=== PATIENT | female | born 1960 | race Caucasian/White ===

== ENCOUNTER → 2023-02-23 11:46 | Outpatient (CLI) | payer OTHER, MEDICAID, SELFPAY ==
--- NOTE | 2023-02-23 11:48 | DI.RAD.S_ITS ---
PROCEDURE: XR LUMBAR SPINE 2-3V INDICATIONS: back pain x 7 months and numbness in hands x 1 month TECHNIQUE: 3 views of the lumbar spine were acquired. COMPARISON: None. FINDINGS: Bones: 5 [id number] vertebrae are present. There is normal bony alignment. Age-indeterminate anterior compression fracture of T12. Age-indeterminate but likely chronic anterior compression deformity of L3. No suspicious bony lesions. Diffuse osteopenia. Multilevel spondylosis. Soft tissues: Overlying bowel gas pattern is normal. No suspicious soft tissue calcifications. IMPRESSION: Age-indeterminate anterior compression fracture involving the T12 vertebral body. Age-indeterminate anterior compression deformity at L3 which is favored to be chronic. Multilevel spondylosis. If there is high clinical concern for acute compression fracture, further evaluation with cross-sectional imaging with CT or MRI can be considered. MRI would be more sensitive. Dictated by: Jabier Mackay M.D. on 02/23/2023 at 16:29 Approved by: Jabier Mackay M.D. on 02/23/2023 at 16:31
--- NOTE | 2023-02-23 11:48 | DI.RAD.S_ITS ---
PROCEDURE: XR THORACIC SPINE 3V INDICATIONS: back pain x 7 months and numbness in hands x 1 month TECHNIQUE: 3 views of the thoracic spine were acquired. COMPARISON: None. FINDINGS: Bones: Age-indeterminate anterior compression fracture at T12. Multilevel thoracic spondylosis. Diffuse osteopenia. No suspicious bony lesions. 12 pairs of ribs are noted, and appear intact where visualized. Soft tissues: No paravertebral stripe thickening. IMPRESSION: Age-indeterminate anterior compression fracture of T12. If there is persistent clinical concern, consider further evaluation with CT or MRI. MRI would be more sensitive. Dictated by: Jabier Mackay M.D. on 02/23/2023 at 16:31 Approved by: Jabier Mackay M.D. on 02/23/2023 at 16:33
== END ==
PROVIDERS: Referring Provider Physician Assistant; Visit Provider Physician Assistant
DX: M47.814 Spondylosis without myelopathy or radiculopathy, thoracic region (principal); M47.816 Spondylosis without myelopathy or radiculopathy, lumbar region; M48.54XA Collapsed vertebra, not elsewhere classified, thoracic region, initial encounter for fracture; M48.56XA Collapsed vertebra, not elsewhere classified, lumbar region, initial encounter for fracture; M54.9 Dorsalgia, unspecified; M85.88 Other specified disorders of bone density and structure, other site
CPT/HCPCS: 72072; 72100

== ENCOUNTER → 2023-05-28 12:04 | Outpatient (CLI) | payer OTHER, MEDICAID, SELFPAY ==
--- NOTE | 2023-05-28 12:06 | DI.RAD.S_ITS ---
Bone Density Report Name: NAUN QUICK Age: 62 Sex: Female Ethnicity: White Date of : 1960 Indication: postmenopausal; screening for osteoporosis; Referring Provider: WENDY CEDENO Study: Bone densitometry was performed. Exam Date: May 28, 2023 Accession number: [id number] Bone Density: Region BMD T-score Z-score Classification AP Spine(L1, L2, L3) 0.655 -3.3 -1.8 Osteoporosis Femoral Neck (Left) 0.499 -3.2 -1.8 Osteoporosis Total Hip (Left) 0.595 -2.8 -1.8 Osteoporosis Femoral Neck (Right) 0.478 -3.3 -1.9 Osteoporosis Total Hip (Right) 0.525 -3.4 -2.3 Osteoporosis Total Hip Mean 0.560 -3.1 -2.1 Osteoporosis World Health Organization criteria for BMD impression classify patients as: Normal (T-score at or above -1.0), Osteopenia (T-score between -1.0 and -2.5), or Osteoporosis (T-score at or below -2.5). 10-year Fracture Risk: FRAX not reported because: Some T-score for Spine Total or Hip Total or Femoral Neck at or below -2.5 Impression: The patient has osteoporosis, based on the Right Total Hip T-score. Discussion: HIGH RISK OF FRACTURE. BONE DENSITY IS UNDESIRABLY LOW AT ONE OR MORE SKELETAL SITES, CONSISTENT WITH OSTEOPOROSIS. ALSO, BONE DENSITY IS LOWER THAN EXPECTED FOR AGE AND SEX AT ONE OR MORE SKELETAL SITES; RECOMMEND A DILIGENT SEARCH FOR SECONDARY CAUSES OF BONE LOSS. This patient's lowest T-score meets the World Health Organization's (WHO) criteria for osteoporosis at one or more sites (T-score -2.5 or below). In untreated patients, the risk of osteoporotic fracture increases approximately two-fold for each 1.0 SD decrease in T-score. Low bone density is not the only risk factor for fracture; also consider factors such as patient's age, frailty or poor health, risk of falling, risk of injury, previous osteoporotic fracture, family history of osteoporosis, cigarette smoking, low body weight, etc. Not everyone with low bone mineral density has osteoporosis; osteomalacia and other metabolic bone disorders should also be considered. Patients who have osteoporosis should be evaluated for specific diseases and conditions (secondary causes) that may cause or contribute to bone loss. The [place] [employer] (AACE) and National Osteoporosis Foundation (NOF) recommend pharmacologic intervention for all postmenopausal women whose T-score is in this range. Also, this patient's bone mineral density is below the range considered normal for healthy age-, sex-, and race-matched controls at least one site (Z-score -2.0 or below). This warrants careful evaluation for diseases and conditions that may contribute to accelerated bone loss. The patient should follow a healthful lifestyle (good nutrition with adequate calcium and vitamin D, and appropriate weight-bearing exercise). Follow-Up: Consider a repeat BMD and Vertebral Fracture Assessment (VFA) exam in 2 years or sooner if medically necessary, to reassess this patient's status. Reported by: DEIRDRE MICHAEL M.D. on 05/28/2023 12:34:00 PM.
== END ==
PROVIDERS: Family Provider Registered Nurse; PCP Registered Nurse; Referring Provider Registered Nurse; Visit Provider Registered Nurse
DX: M81.0 Age-related osteoporosis without current pathological fracture (principal); Z78.0 Asymptomatic menopausal state
CPT/HCPCS: 77080

== ENCOUNTER → 2023-07-09 12:02 | Outpatient (CLI) | payer OTHER, MEDICAID, SELFPAY | PROVIDERS: Absent Provider Registered Nurse; Family Provider Registered Nurse; PCP Registered Nurse; Referring Provider Registered Nurse; Visit Provider Registered Nurse | DX: R20.2 Paresthesia of skin (principal); M79.601 Pain in right arm; M79.602 Pain in left arm | CPT/HCPCS: 95886; 95909 ==